=== PATIENT | male | born 2000 | race Caucasian/White ===

== ENCOUNTER 2021-01-01 18:01 | Emergency (ER) | payer OTHER ==
[~2021-01-01] VITALS: Ht 188 cm; Wt 111.4 kg
[2021-01-01 18:13] LABS: BASO # 0.1 K/mm3 (0.0-0.2); BASO % 0.9 % (0.0-2.0); EOS # 0.2 K/mm3 (0.0-0.7); EOS % 3.4 % (0-4.0); GRAN # 3.2 K/mm3 (1.4-6.5); GRAN % 47.3 % (42.2-75.2); HEMATOCRIT 42.4 % (42.0-52.0); HEMOGLOBIN 13.9 g/dl (13.5-18.0); LYMPH # 2.9 K/mm3 (1.2-3.4); MEAN CELL VOLUME 82 fl (80.0-100.0); MEAN CORPUSCULAR HEMOGLOBIN 27 pg (27.0-31.0); MEAN CORPUSCULAR HGB CONC 33 g/dl (33.0-37.0); MEAN PLATELET VOLUME 9.3 fl (7.4-10.4); MONO # 0.4 K/mm3 (0.1-0.6); MONO % 5.3 % (1.7-9.3); PLATELET COUNT 288 K/mm3 (130-400); RED BLOOD COUNT 5.16 M/mm3 (4.20-5.60); REDCELL DISTRIBUTION WIDTH-CV 12.8 % (11.5-14.5)
[2021-01-01 18:32] LABS: ALBUMIN 4.4 gm/dL (3.5-5.0); BILIRUBIN,TOTAL 0.3 mg/dL (0.2-1.2); CALCIUM 8.9 mg/dL (8.4-10.2); CREATININE, serum 1.26 mg/dL (0.72-1.25); POTASSIUM 4.1 mmol/L (3.5-4.5); TOTAL PROTEIN 7.8 gm/dL (6.2-8.1)
[2021-01-01 19:02] LABS: ARTERIAL BLD GAS O2 SATURATION 88.4 % (92-100); ARTERIAL BLD GAS TCO2 CT 23.3; ARTERIAL BLOOD GAS BASE EXCESS -3.9 (-2-2); ARTERIAL BLOOD GAS PCO2 42.7 mmHg (35-45); ARTERIAL BLOOD GAS pH 7.33 (7.35-7.45)
[2021-01-01 19:46] VITALS: BP 133/64; PULSE 100; TEMP 98.1
--- NOTE | 2021-01-02 15:34 | NUR ---
Recieved a call from [employer] [facility] [employer]. After confirmation of person calling, Marisol Jean-Baptiste, ; patients phone number given for contact of patient for assistance
== END 2021-01-01 19:52 | disposition home or self-care (01) ==
LOC: COL.ER 18:01
PROVIDERS: Emergency Medicine
DX: R94.4 Abnormal results of kidney function studies (principal); X00.1XXA Exposure to smoke in uncontrolled fire in building or structure, initial encounter; Y92.009 Unspecified place in unspecified non-institutional (private) residence as the place of occurrence of the external cause
CPT/HCPCS: J7030